=== PATIENT | female | born 1985 | race African-American/Black ===

== ENCOUNTER 2017-12-27 22:49 | Emergency (ER) | payer OTHER | END 2017-12-27 23:13 | disposition home or self-care (01) | LOC: ERS 22:49 | DX: I10 Essential (primary) hypertension (principal) | CPT/HCPCS: 99282 ==

== ENCOUNTER 2018-02-02 22:32 | Emergency (ER) | payer OTHER, SELFPAY ==
[2018-02-02] MEDS ORDERED: Fioricet 325/50/40 mg Tablet PO SCH ×2 (23:00→23:15)
[2018-02-02] MEDS ORDERED: Ibuprofen 800 MG TAB ONE (23:07)
== END 2018-02-03 01:17 | disposition home or self-care (01) ==
LOC: ERS 22:32
DX: I10 Essential (primary) hypertension (principal); G43.909 Migraine, unspecified, not intractable, without status migrainosus; Z79.899 Other long term (current) drug therapy
CPT/HCPCS: 93005

== ENCOUNTER 2018-05-23 18:56 | Emergency (ER) | payer SELFPAY ==
[2018-05-23 19:35] LABS: #Eosinphils 0.2 thou/uL (0.0-0.7); #Lymphocytes 1.9 thou/uL (1.20-3.40); #Monocytes 0.6 thou/uL (0.11-0.59); #Neutrophils 3.7 thou/uL (1.40-6.50); %Basophils 0.6 % (0.0-1.0); %Eosinophils 2.9 % (0.0-10.0); %Lymphocytes 29.3 % (21.0-51.0); %Monocytes 8.8 % (0.0-10.0); %Neutrophils 58.5 % (42.0-75.0); Mean Corpuscular HGB CONC 32.2 g/dL (32.0-36.0); Mean Corpuscular Hemoglobin 26.9 pg (27.0-31.0); Mean Corpuscular Volume 83.4 fL (78.0-98.0); Platelet Count 247 thou/uL (130-400); RBC Distribution Width 14.3 % (11.5-14.5); Red Blood Cell (RBC) Count 4.45 mill/uL (4.20-5.40); White Blood Cell (WBC) Count 6.4 thou/uL (4.8-10.8)
--- NOTE | 2018-05-23 19:44 | RAD ---
TWO VIEWS OF THE CHEST: Comparison: None. History: Cough. FINDINGS: Two views of the chest show normal sized cardiomediastinal silhouette. There is no evidence of consol idation, mass, or pleural effusion. The bones are unremarkable. IMPRESSION: No evidence of acute cardiopulmonary disease. POS: [facility]
[2018-05-23 19:58] LABS: ALT (SGPT) 20 U/L (8-55); AST (SGOT) 18 U/L (5-34); Albumin 3.9 g/dL (3.5-5.0); Alkaline Phosphatase 88 U/L (40-150); Anion Gap 11 mmol/L (10-20); BUN (Urea Nitrogen) 15 mg/dL (7.0-18.7); Bilirubin, Total 0.3 mg/dL (0.2-1.2); Calc. Creatinine Clearance 0 mL/min (70-130); Calcium 8.9 mg/dL (7.8-10.44); Carbon Dioxide 26 mmol/L (22-29); Chloride 104 mmol/L (98-107); Estimated GFR-MDRD Greater than 90; Globulin 4.3 g/dL (2.4-3.5); Glucose 155 mg/dL (70-105); Potassium 3.4 mmol/L (3.5-5.1); Protein, Total 8.2 g/dL (6.0-8.3); Sodium 138 mmol/L (136-145)
[2018-05-23] MEDS ORDERED: Dexamethasone 4 mg/ml Vial ONE (20:48)
== END 2018-05-23 21:04 | disposition home or self-care (01) ==
LOC: ERS 18:56
DX: J20.8 Acute bronchitis due to other specified organisms (principal); I10 Essential (primary) hypertension
CPT/HCPCS: 36415; 71046; 80053; 85025; 96372; J1100

== ENCOUNTER 2020-12-09 14:02 | Emergency (ER) | payer SELFPAY ==
[2020-12-09] MEDS ORDERED: Ibuprofen 200 MG TAB ONE (15:31)
[2020-12-10 12:40] LABS: SARS-CoV-2 PCR by NAA DETECTED (NotDetected)
== END 2020-12-09 15:55 | disposition home or self-care (01) ==
LOC: ERS 14:02
DX: U07.1 COVID-19 (principal); I10 Essential (primary) hypertension
CPT/HCPCS: 99283; U0003; U0005

== ENCOUNTER 2021-06-09 10:06 | Emergency (ER) | payer BC, OTHER | END 2021-06-09 10:52 | disposition home or self-care (01) | LOC: ERS 10:06 | DX: J11.1 Influenza due to unidentified influenza virus with other respiratory manifestations (principal); I10 Essential (primary) hypertension; G43.909 Migraine, unspecified, not intractable, without status migrainosus | CPT/HCPCS: 99283 ==